=== PATIENT | female | born 1980 | race African-American/Black ===

== ENCOUNTER 2022-01-11 16:38 | Emergency (ER) | payer BC ==
[2022-01-11] MEDS ORDERED: Ketorolac Tromethamine 30 MG/ML VIAL ONE (17:20)
== END 2022-01-11 19:22 | disposition home or self-care (01) ==
LOC: CSHERS 16:38
DX: M25.572 Pain in left ankle and joints of left foot (principal); G89.29 Other chronic pain; G43.909 Migraine, unspecified, not intractable, without status migrainosus
CPT/HCPCS: 96372; J1885